=== PATIENT | male | born 1940 | race Caucasian/White ===

== ENCOUNTER 2016-10-13 08:34 | Day surgery (SDC) | payer MEDICARE, BC ==
[~2016-10-13] VITALS: Ht 170.2 cm; Wt 60.9 kg
--- NOTE | ~2016-10-13 | OR ---
PATIENT'S NAME: TREY HICKS [facility] AGE: 75 Y [address] ROOM: [address] [address] [place] [facility] [place]: [place]13[place] OR/Procedure Report DISCHARGE DATE: FAMILY PHYSICIAN: Petr Calderon MD ATTENDING PHYSICIAN: Earl Gamboa V SURGEON: Earl Gamboa MD [employer] OPERATOR: Colt Ramirez MD-Student, PGY5. DATE OF PROCEDURE: 10/13/2016 PREOPERATIVE DIAGNOSIS: Right parotid mass. POSTOPERATIVE DIAGNOSIS: Right parotid mass. OPERATION/PROCEDURE: 1. Right superficial parotidectomy with facial nerve dissection. 2. Placement of EMG monitor with intraoperative nerve monitoring in 1 hour. ANESTHESIA: General endotracheal anesthesia. ESTIMATED BLOOD LOSS: Minimal. COMPLICATIONS: None. DESCRIPTION OF PROCEDURE: The patient was taken to the operating room, laid in supine position with general endotracheal anesthesia. Head was rotated to the left. Right face was approached. Proposed incision line. Modified Brian incision was then marked and infiltrated with 1% lidocaine with epinephrine solution. EMG monitor was then placed within the vallecular source. Orbicularis oculi muscle and impedance interference were noted to be within normal limits. Face was then prepped and draped in usual sterile fashion using Betadine solution. Right modified Brian incision was then performed using #15 blade. Subcutaneous tissues were divided using #15 blade. Anterior skin flap was elevated within the superficial musculoaponeurotic fascia. Skin flap was secured using 2-0 silk suture. The earlobe was reflected superiorly. The parotid was then reflected off the anterior border of the sternocleidomastoid muscle. Subcutaneous tissues were divided using Bovie electrocautery. A deep retrofacial vein was clamped and suture ligated using 2-0 silk suture. Dissection was then performed along the tragal pointer. Once the tragal pointer was exposed, blunt dissection was then performed approximately 1 cm deep and inferior to the tragal pointer. Facial nerve was identified and confirmed using a stimulus probe at 0.8 mA. The trunk of the facial nerve was then followed out anteriorly. The frontal and zygomatic branches were then followed superiorly. Flanking maneuver was then performed. Clamping parotid tissue. Suture-ligated with 3-0 silk suture. Marginal mandibular branch and facial nerve was then followed inferiorly. Again, PATIENT'S NAME: TREY HICKS [facility] AGE: 75 Y [address] ROOM: [address] [place], [place] [address] [place] [facility] [place]: 10/13/2016 OR/Procedure Report DISCHARGE DATE: FAMILY PHYSICIAN: Petr Calderon MD ATTENDING PHYSICIAN: Earl Gamboa V additional flanking maneuver was performed clamping parotid tissue inferiorly. The frontal branch was then followed superiorly up to the level of the zygoma superior to the parotid mass. Parotid tissue was then clamped and suture ligated superficial to the nerve and the parotid was reflected anteriorly. The buccal branch of the facial nerve was identified. It was followed anteriorly. Parotid tissue between the buccal and the zygomatic branch of the facial nerve were clamped and suture ligated using 3-0 silk suture. All parotid was being reflected inferiorly. The marginal branch count was then followed past the angle of the mandible followed anteriorly. Parotid tissue was clamped and suture ligated inferior to the marginal mandibular branch as well as the superior. The tissue between the buccal and marginal branches of the facial nerve was then clamped and suture ligated with 3-0 silk suture and followed anteriorly just almost to the lateral canthal line. The parotid mass was removed in total and sent for permanent pathology. The wound was irrigated with copious amounts of bacitracin solution and hemostasis was adequate. The facial nerve was stimulated with good response on the nerve integrity monitor as well as visual response. Drain was then placed through a separate inferior stab incision, secured using 2-0 silk suture. The subcutaneous tissues were approximated with interrupted 3-0 Vicryl. Skin closure was performed using a running interlocking 5-0 Ethilon superiorly, interrupted 5-0 Ethilon inferiorly. Right superficial parotidectomy with facial nerve dissection. EARL GAMBOA MD TVC/modl /[id number] d: 10/13/162109 t: 10/30/16 1843, OPERATIVE SUMMARY
[~2016-10-13 08:34] MED LIST: FISH OIL 1,0001 EAC4 PO; MEN 50 PLUS MU1 EACH PO; ULTRAM50 MG PO; UROCIT-K 10ME1080 MG PO; ZOCOR20 MG PO
[2016-10-13] MEDS ORDERED: TYLENOL WITH C1 EACH PO (09:11)
[2016-10-13] MEDS ORDERED: PREVACID15 MG PO (09:15)
[2016-10-13 09:28] LABS: BASOPHIL % 0.4 %; EOSINOPHIL # 0.2 K/uL (0.0-0.5); EOSINOPHIL % 2.8 %; HEMATOCRIT 44.7 % (37.0-53.0); HEMOGLOBIN 15.3 g/dL (11.0-16.0); IMMATURE GRANULOCYTE % 0.3 %; LYMPHOCYTE % 29.3 %; MCH 30.1 pg (27.0-34.0); MCHC 34.2 gm/dL (32.0-36.5); MONOCYTE # 0.6 K/uL (0.0-1.0); MONOCYTE % 9.1 %; MPV 9.5 fl (9.4-12.4); NEUTROPHIL # (ANC) 3.9 K/uL (1.4-9.0); NEUTROPHIL % 58.1 %; NRBC % 0 /100WBC (0-0.00); PLATELET COUNT 275 K/uL (150-450); RBC 5.08 M/uL (3.50-5.50); WBC 6.7 K/uL (4.0-11.0)
[2016-10-13 09:35] LABS: INR - (THERAPEUTIC) 0.98 (0.92-1.07); PROTIME 10.3 SECONDS (9.8-11.4)
[2016-10-13 09:42] LABS: ALBUMIN 3.6 gm/dL (3.5-5.0); ANION GAP 11.3 (10.0-19.0); CALCIUM 8.6 mg/dL (8.5-10.5); CREATININE 1.4 mg/dL (0.6-1.3); POTASSIUM 4.3 mMol/L (3.7-5.1); TOTAL BILIRUBIN 1.5 mg/dL (0.0-1.5)
[2016-10-14] MEDS ORDERED: HYDROCODON-ACE1 EAC4 PO (09:40)
== END 2016-10-14 10:10 | disposition disaster alternative care site (69) ==
LOC: GMSU 08:34 → GSDC 08:34 → GPOC 10:00 → GMSU 14:45 → GSDC 10-14 10:10
PROVIDERS: Otolaryngology
PROC: 0CB80ZZ Excision of Right Parotid Gland, Open Approach (ICD-10-PCS; principal; 2016-10-13)
PROC: 00BM0ZZ Excision of Facial Nerve, Open Approach (ICD-10-PCS; 2016-10-13)
DX: D11.0 Benign neoplasm of parotid gland (principal); M19.90 Unspecified osteoarthritis, unspecified site; K21.9 Gastro-esophageal reflux disease without esophagitis; E78.00 Pure hypercholesterolemia, unspecified; I10 Essential (primary) hypertension; E78.5 Hyperlipidemia, unspecified; Z98.890 Other specified postprocedural states; Z79.899 Other long term (current) drug therapy; Z88.5 Allergy status to narcotic agent; Z88.0 Allergy status to penicillin
CPT/HCPCS: J1100; J1170; J2001; J2405; J3010; J7120